=== PATIENT | male | born 1975 | race Caucasian/White ===

== ENCOUNTER 2023-03-31 02:30 | Inpatient (IN) | payer MEDICAID ==
[~2023-03-31] VITALS: Ht 182.9 cm; Wt 110.0 kg
[2023-03-31] MEDS ORDERED: LIDOCAINE 1% 10 ML VIAL SQ ONE (03:00)
[2023-03-31] MEDS ORDERED: PERTUSS(ACELL),DIPH,TET VAC/PF 0.5 ML SYRINGE IM. ONE (03:00)
[2023-03-31 03:05] LABS: BASOPHILS % (AUTO) 0.5 % (0.0-2.0); EOSINOPHILS % (AUTO) 0.5 % (1.0-6.0); HEMATOCRIT 48.4 % (41-53); HEMOGLOBIN 16.1 g/dL (13.5-17.5); LYMPHOCYTES # (AUTO) 2.4 K/uL (1.0-4.8); LYMPHOCYTES % (AUTO) 23.7 % (22.0-44.0); MEAN CORPUSCULAR HEMOGLOBIN 30.6 pg (26.0-34.0); MEAN CORPUSCULAR HGB CONC 33.3 G/dL (31.0-37.0); MEAN CORPUSCULAR VOLUME 92 fL (80-100); MONOCYTES % (AUTO) 9.4 % (2.0-9.0); NEUTROPHILS # (AUTO) 6.8 K/uL (1.8-7.7); NEUTROPHILS % (AUTO) 65.9 % (40.0-70.0); PLATELET COUNT (AUTO) 246 K/uL (150-450); RED BLOOD CELL COUNT(AUTO) 5.27 MIL/uL (4.50-5.90); RED CELL DISTRIBUTION WIDTH 14.1 % (11.5-14.5)
[2023-03-31 03:13] LABS: ANION GAP 8 mmol/L (8-16); CALCIUM, TOTAL 8.9 mg/dL (8.8-10.5); CARBON DIOXIDE 29 mmol/L (22-29); CHLORIDE 100 mmol/L (98-107); CREATININE 1.17 mg/dL (0.60-1.30); GLOMERULAR FILTR. RATE CALC > 60 mL/min (>60); GLUCOSE,RANDOM 81 mg/dL (70-110); POTASSIUM 3.9 mmol/L (3.5-5.1); SODIUM SERUM 137 mmol/L (136-145); UREA NITROGEN, BLOOD 20 mg/dL (7-18)
[2023-03-31 03:19] LABS: ALANINE AMINOTRANSFERASE 45 U/L (12-78); ALBUMIN 4.4 g/dL (3.4-5.0); ALKALINE PHOSPHATASE 115 U/L (46-116); ASPARTATE AMINOTRANSFERASE 38 U/L (15-37); BILIRUBIN,TOTAL 0.5 mg/dL (0.1-1.0); TOTAL PROTEIN, SERUM 8.6 g/dL (6.4-8.2)
[2023-03-31] MEDS ORDERED: BACITRACIN 0.9 GM PACKET OINTMENT TP ONE (03:30)
[2023-03-31 05:09] LABS: COVID AG,FIA SOURCE NASAL SWAB
[2023-03-31] MEDS ORDERED: ZOLPIDEM TARTRATE 10 MG TABLET PO PRN (07:45)
[2023-03-31] MEDS ORDERED: HALOPERIDOL 5 MG TABLET PO PRN (07:45)
[2023-03-31 13:00] VITALS: BP 134/87
[2023-03-31] MEDS ORDERED: DOCUSATE SODIUM 100 MG CAPSULE PO PRN (13:45)
[2023-03-31] MEDS ORDERED: IBUPROFEN 400 MG TABLET PO PRN (13:45)
[2023-03-31] MEDS ORDERED: CloNIDine HCL 0.1 MG TABLET PO PRN (13:45)
[2023-03-31] MEDS ORDERED: ALBUTEROL SULFATE HFA 90 MCG/PUFF 8 GM INHALER IH PRN (13:45)
[2023-03-31] MEDS ORDERED: ACETAMINOPHEN 325 MG TABLET PO PRN (13:45)
[2023-03-31] MEDS ORDERED: NICOTINE 14 MG/24 HOUR PATCH TD PRN (13:45)
[2023-03-31] MEDS ORDERED: PETROLATUM,WHITE 28 GM JELLY TP PRN (13:45)
[2023-03-31] MEDS ORDERED: LOPERAMIDE HCL 2 MG CAPSULE PO PRN (13:45)
[2023-03-31] MEDS ORDERED: ONDANSETRON HCL 4 MG TABLET PO PRN (13:45)
[2023-03-31] MEDS ORDERED: MAG HYDROX/AL HYDROX/SIMETH ES 30 ML SUSPENSION UDCUP PO PRN (13:45)
[2023-03-31] MEDS ORDERED: MAGNESIUM HYDROXIDE SUSPENSION 30 ML UDCUP PO PRN (13:45)
[2023-03-31] MEDS ORDERED: GuaiFENesin/D-METHORPHAN [SUGAR-FREE] 200-20MG/10 ML SYRUP UDCUP PO PRN (13:45)
[2023-03-31 20:29] VITALS: BP 108/63
[2023-04-01 06:55] VITALS: BP 135/90
[2023-04-01 08:24] VITALS: BP 103/68
[2023-04-01] MEDS: NICOTINE 14 MG/24 HOUR PATCH TD SCH (08:28)
[2023-04-01] MEDS: BACITRACIN 28 GM OINTMENT TP SCH (08:28)
[2023-04-01] MEDS: LORazepam 2 MG TABLET PO PRN (16:08)
[2023-04-01 20:00] VITALS: BP 122/72
[2023-04-02 08:47] VITALS: BP 138/83
[2023-04-02] MEDS: BACITRACIN 28 GM OINTMENT TP SCH (08:53)
[2023-04-02] MEDS: NICOTINE 14 MG/24 HOUR PATCH TD SCH (09:02)
[2023-04-02] MEDS: LORazepam 2 MG TABLET PO PRN (10:42)
[2023-04-02 20:51] VITALS: BP 127/83
[2023-04-02] MEDS: SERTRALINE HCL 50 MG TABLET PO SCH (21:20)
[2023-04-03] MEDS: BACITRACIN 28 GM OINTMENT TP SCH (08:44)
[2023-04-03] MEDS: SERTRALINE HCL 50 MG TABLET PO SCH (08:44)
[2023-04-03] MEDS: NICOTINE 14 MG/24 HOUR PATCH TD SCH (08:44)
[2023-04-03 09:11] VITALS: BP 137/98
[2023-04-03] MEDS ORDERED: SERT-158 PO (11:51)
== END 2023-04-03 14:00 | disposition home or self-care (01) | DRG 751 ==
LOC: EMS 02:33 → B2S 11:20
PROVIDERS: ADMIT Psychiatry & Neurology Psychiatry; ATTEND Psychiatry & Neurology Psychiatry
PROC: 3E0234Z Introduction of Serum, Toxoid and Vaccine into Muscle, Percutaneous Approach (ICD-10-PCS; principal; 2023-03-31)
DX: F33.2 Major depressive disorder, recurrent severe without psychotic features (principal); R45.851 Suicidal ideations; G47.00 Insomnia, unspecified; F17.210 Nicotine dependence, cigarettes, uncomplicated; R03.0 Elevated blood-pressure reading, without diagnosis of hypertension; Z20.822 Contact with and (suspected) exposure to COVID-19; R74.01 Elevation of levels of liver transaminase levels; Z23 Encounter for immunization
CPT/HCPCS: 80053; 85025; 87340; 90715; G0480; J3490